=== PATIENT | female | born 1995 | race African-American/Black ===

== ENCOUNTER 2020-07-20 14:23 | Outpatient (CLI) | payer OTHER ==
--- NOTE | 2020-07-20 18:39 | XRAY Report ---
PROCEDURE: Finger(s) RT INDICATIONS: R FINGER PX TECHNIQUE: AP hand, 3 views of the third finger(s) acquired. COMPARISON: None FINDINGS: Bones: No fractures or dislocations. No suspicious bony lesions. Soft tissues: No suspicious soft tissue calcifications. IMPRESSION: No visualized acute fracture or dislocation. However, occult injury cannot be excluded. Recommend kt rt interval imaging follow-up in 7-10 days as clinically indicated for additional evaluation. Reviewed by: Emily Webb MD on 07/20/2020 6:37 PM PDT Approved by: Emily Webb MD on 07/20/2020 6:37 PM PDT Station ID: [id number]
== END 2020-07-20 23:59 | disposition home or self-care (01) ==
LOC: DI.N 14:23
PROVIDERS: ATTEND Family Medicine
DX: M79.644 Pain in right finger(s) (principal)

== ENCOUNTER 2020-07-24 15:38 | Emergency (ER) | payer OTHER ==
[2020-07-24 15:57] VITALS: BP 132/71
[2020-07-24] MEDS ORDERED: BUFFERED LIDOCAINE 10 ML SYRINGE SUBQ STA (16:22)
[2020-07-24] MEDS ORDERED: BACITRACIN ZINC OINT 1 PACKET TOP STA (17:09)
--- NOTE | 2020-07-24 17:10 | ED Physician Documentation ---
History of Present Illness - Stated complaint Stated Complaint: RT FINGER INJURY - Chief complaint Chief Complaint: Ext Problem - Additonal information Additional information: 24-year-old right-handed female presents to the emergency department for evaluation of her right middle finger injury. On the of this month she was running to catch her child and she fell forward jamming the finger on the ground. She wears acrylic nails and had immediate swelling and pain of the finger. 2 days later she presented to an urgent care setting concerned that she may have had bruising or bleeding under the nail. However because she had acrylic nails they started her on antibiotics. Despite the antibiotic she has had increased swelling of the distal fingertip. Also increased pain but no fevers. She is currently taking cephalexin this is day 3 of 7. An x-ray completed at the urgent care did not show any findings of fracture. Review of Systems Constitutional: reports: Reviewed and negative Ears: reports: Reviewed and negative Nose: reports: Reviewed and negative Throat: reports: Reviewed and negative Musculoskeletal: reports: Extremity pain (right middle finger) PD PAST MEDICAL HISTORY - Past Medical History Past Medical History: Yes Other Past Medical History: Pre-diabetes type 2 - Past Surgical History Past Surgical History: Yes Ortho: Knee replacement - Present Medications Home Medications: Ambulatory Orders Medication Instructions Recorded Confirmed HYDROcod/ACETAM 5/325 [[place] 5/325] 1 tablet PO BID PRN #5 tablet 07/24/20 - Allergies Allergies/Adverse Reactions: Allergies Allergy/AdvReac Type Severity Reaction Status Date / Time No Known Drug Allergies Allergy Verified 07/24/20 15:57 - Social History Does the pt smoke?: No Smoking Status: Never smoker Does the pt drink ETOH?: No - Immunizations Immunizations are current?: Yes PD ED PE EXPANDED - General General: Alert, No acute distress - Extremities Extremities: Right finger(s) (distal middle finger swelling. lime nail with serous foul smell fluid draining beneath. crylic gel nal attached to lime nail) Results - Vitals Vitals: Vital Signs - 24 hr 07/24/20 15:53 Temperature 36.5 C Heart Rate 86 Respiratory 16 Rate Blood Pressure 132/71 H O2 Saturation 99 Oxygen O2 Source Room air Procedures - General procedure General procedure: 1% lidocaine used to acheive adequate anesthesia of the finger via digital block. Forceps were used to Lift the gel acrylic nail from the lime nail bed. Once the acrylic nail was lifted moderate amount of serous foul-smelling fluid draining tween the lime nail and the nail bed. The lime nail was trephinated using a scalpel. PD MEDICAL DECISION MAKING - ED course Complexity details: reviewed results, re-evaluated patient, d/w patient ED course: 24-year-old female presents emergency department for evaluation of a right middle finger nailbed injury sustained after she jammed her finger just about 1 week ago. She was started on antibiotics at an outpatient walk-in clinic unfortunately the infection has progressed. She likely had a subungual hematoma that has not had the ability to drain. I was able to lift the acrylic nail from the lime nail bed at the bedside. The lime nail is somewhat boggy and soft but it was trephinated. The nail was also irrigated copiously. Patient is advised to do warm salt water soaks on this nail twice daily continue her antibiotics. She is to return to the emergency department if she is having increased pain swelling redness or concerns of infection. I am prescribing a short course of short-acting opioid pain medication for this patient. 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 I have discussed that the opioids are for short term therapy only, and will not be refilled from the ED. Departure - Departure Disposition: 01 Home, Self Care Clinical Impression: Subungual hematoma, Finger infection Condition: Stable Record reviewed to determine appropriate education?: Yes Prescriptions: HYDROcod/ACETAM 5/325 [[place] 5/325] 1 tablet PO BID PRN #5 tablet PRN Reason: Pain Comments: Unfortunately when you jammed her finger you likely some sustained a large amount of bruising between your lime nail and the nail bed. This is called a subungual hematoma. At the bedside today we were able to remove your acrylic nail and drain the fluid and infection that had developed beneath the lime nail. Please soak your finger in warm salt water twice a day. Continue the antibiotics. Now that the nail has had the opportunity to drain I do expect that the redness pain and swelling will be markedly better over the next 48 to 72 hours. If your symptoms are not improving, you have increased swelling fevers or pain please return to the ER for a second look. I am prescribing a short course of narcotic pain medication for you. These are potentially dangerous and addictive medications that should be used carefully. These medications may constipate you. Take an lfqk-hrw-pewppwv stool softener (docusate) twice daily with plenty of water while taking these medications. If you go 24 hours without a bowel movement, take [id number]-[id number] miralax, per package instructions. Do not drink or drive while taking these medications. If you received narcotic or sedating medications while in the emergency department, do not drive for 24 hours. Store this medication in a safe, secure place and out of reach of children. It is a violation of federal law to give or sell this medication to another person or to use in a manner other than prescribed. The ED will not refill narcotic prescriptions, including prescriptions lost or stolen. To dispose of unwanted medications: 1. [facility] at [address] in [place] has a medication drop box. They accept prescription medications (in pill form) Tuesday through Tuesday 9:00 a.m. to 5:00 p.m. 2. The [facility] accepts prescription medications (in pill form only) for disposal year round. Call for more information. 3. Contact the [facility] for the next [facility] sponsored prescription drug collection event. , x7310, or [phone]; Note that many narcotic pain relievers also contain Tylenol/acetaminophen. Please ensure that your total dose of acetaminophen from all sources does not exceed 3 g (3000 mg) per day.
== END 2020-07-24 17:26 | disposition home or self-care (01) ==
LOC: ED 15:38
DX: S67.192A Crushing injury of right middle finger, initial encounter (principal); W18.39XA Other fall on same level, initial encounter; Y93.02 Activity, running; L03.011 Cellulitis of right finger; R73.03 Prediabetes
CPT/HCPCS: 11740; 99282; 99283

== ENCOUNTER 2021-04-08 08:00 | Outpatient (CLI) | payer OTHER | END 2021-04-08 23:59 | LOC: LAB.N 08:00 | PROVIDERS: ATTEND Physician Assistant Medical | DX: R19.7 Diarrhea, unspecified (principal) ==

== ENCOUNTER 2022-10-11 14:17 | Emergency (ER) | payer OTHER ==
[2022-10-11 14:37] VITALS: BP 139/84; O2SAT 96
[2022-10-11] MEDS ORDERED: ACETAMINOPHEN 325 MG TABLET PO STA (15:58)
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
== END 2022-10-11 16:05 | disposition home or self-care (01) ==
LOC: ED 14:17
DX: M54.2 Cervicalgia (principal); V89.2XXA Person injured in unspecified motor-vehicle accident, traffic, initial encounter; Y92.481 Parking lot as the place of occurrence of the external cause
CPT/HCPCS: 99282; 99283; A9270